=== PATIENT | female | born 1945 | race Caucasian/White ===

== ENCOUNTER 2018-03-16 15:45 | Outpatient (REF) | payer MEDICARE, SELFPAY ==
[2018-03-16 21:41] LABS: Cholesterol 314 mg/dL (50-200); HDL Cholesterol 58 mg/dL (40-60); LDL CHOLESTEROL 222 mg/dL (<100); TSH (W/Ref FT4) 5.14 uIU/mL (0.358-3.74); Triglyceride 186 mg/dL (30-150)
[2018-03-16 22:16] LABS: FREE T4 0.81 ng/dL (0.76-1.46)
== END 2018-03-16 16:05 ==
LOC: NCHCN 15:45
PROVIDERS: PCP Family Medicine; Visit Provider Family Medicine
DX: I48.91 Unspecified atrial fibrillation (principal); E78.5 Hyperlipidemia, unspecified; E03.9 Hypothyroidism, unspecified
CPT/HCPCS: 80061; 83721; 84439; 84443

== ENCOUNTER 2018-11-30 08:29 | Outpatient (REF) | payer OTHER, MEDICAID, SELFPAY ==
[2018-11-30 22:17] LABS: Abs Immature Grans 0.02 k/cumm (0.0-0.09); Absolute Basophil Count 0.04 k/cumm (0.0-0.2); Absolute Lymphocyte Count 2.01 k/cumm (1.2-3.4); Absolute Monocyte Count 0.64 k/cumm (0.11-0.7); Absolute Neutrophil Count 3.95 k/cumm (1.2-6.7); Basophils % 0.6; Eosinophils % 5.7; HCT 45.4 % (36.0-46.0); HGB 14.6 g/dL (12.0-15.5); Immature Grans % 0.3; Lymphocytes % 28.5; Mean Corp. HGB Concentration 32.2 g/dL (32.0-36.0); Mean Corpuscular Hemoglobin 31.3 pg (27.0-33.0); Mean Corpuscular Volume 97.4 fL (80-95); Mean Platelet Volume 12.4 fL (8.0-11.0); Monocytes % 9.1; Neutrophils % 55.8; Platelet Count 225 x1000/uL (130-400); RBC 4.66 m/cumm (4.00-5.20); RBC Distribution Width 14.1 % (11.7-14.6); White Blood Cell Count 7.06 k/cumm (4.4-10.8)
[2018-11-30 22:51] LABS: Anion Gap 12.6 mmol/L (3-11); BUN 18 mg/dL (7-18); CO2 23.4 mmol/L (21.0-32.0); CREATININE 1.02 mg/dL (0.55-1.02); Calcium 8.8 mg/dL (8.5-10.1); Chloride 107 mmol/L (98-107); Estimated GFR 53.27 (mL/min/1.73m2); Glucose 97 mg/dL (70-100); Sodium 143 mmol/L (136-145); TSH 4.97 uIU/mL (0.358-3.74)
[2018-12-02 09:18] LABS: Calculated LDL 198; Cholesterol 290 mg/dL (50-200); HDL Cholesterol 57 mg/dL (40-60); Triglyceride 177 mg/dL (30-150)
== END 2018-11-30 08:49 ==
LOC: LBN 08:29
PROVIDERS: PCP Family Medicine; Visit Provider Family Medicine
DX: I10 Essential (primary) hypertension (principal); E03.9 Hypothyroidism, unspecified; E78.5 Hyperlipidemia, unspecified; I48.91 Unspecified atrial fibrillation; Z79.01 Long term (current) use of anticoagulants; M79.652 Pain in left thigh
CPT/HCPCS: 80048; 80061; 83721; 82043; 82570; 84443; 85025

== ENCOUNTER 2019-01-08 09:40 | Outpatient (REF) | payer OTHER, MEDICAID, SELFPAY ==
[2019-01-08 21:41] LABS: ALT 22 U/L (12-78); Calculated LDL 125 mg/dL; Cholesterol 214 mg/dL (50-200); HDL Cholesterol 57 mg/dL (40-60); TSH 5.71 uIU/mL (0.36-3.74); Triglyceride 164 mg/dL (30-150)
[2019-01-08 22:19] LABS: COMMENT (LAB VIEW ONLY) 69.91 mg/dL
== END 2019-01-08 10:00 ==
LOC: NCHCN 09:40
PROVIDERS: PCP Family Medicine; Visit Provider Family Medicine
DX: I48.91 Unspecified atrial fibrillation (principal); I10 Essential (primary) hypertension; E03.9 Hypothyroidism, unspecified; E78.5 Hyperlipidemia, unspecified; M79.652 Pain in left thigh
CPT/HCPCS: 80061; 83721; 82043; 82570; 84443; 84460

== ENCOUNTER 2019-04-07 07:46 | Outpatient (REF) | payer OTHER, SELFPAY ==
[2019-04-07 21:42] LABS: Abs Immature Grans 0.01 k/cumm (0.0-0.09); Absolute Basophil Count 0.04 k/cumm (0.0-0.2); Absolute Eosinophil Count 0.24 k/cumm (0.0-0.7); Absolute Lymphocyte Count 2.15 k/cumm (1.2-3.4); Absolute Monocyte Count 0.62 k/cumm (0.11-0.7); Absolute Neutrophil Count 4.93 k/cumm (1.2-6.7); Basophils % 0.5; HCT 44.6 % (36.0-46.0); HGB 14.3 g/dL (12.0-15.5); Immature Grans % 0.1; Lymphocytes % 26.9; Mean Corp. HGB Concentration 32.1 g/dL (32.0-36.0); Mean Corpuscular Hemoglobin 31.2 pg (27.0-33.0); Mean Corpuscular Volume 97.4 fL (80-95); Mean Platelet Volume 11.5 fL (8.0-11.0); Monocytes % 7.8; Neutrophils % 61.7; Platelet Count 268 x1000/uL (130-400); RBC 4.58 m/cumm (4.00-5.20); RBC Distribution Width 13.9 % (11.7-14.6); White Blood Cell Count 7.99 k/cumm (4.4-10.8)
[2019-04-07 22:04] LABS: Anion Gap 10.2 mmol/L (3-11); BUN 17 mg/dL (7-18); CO2 26.8 mmol/L (21.0-32.0); CREATININE 1.04 mg/dL (0.55-1.02); Calcium 8.9 mg/dL (8.5-10.1); Calculated LDL 113 mg/dL; Chloride 105 mmol/L (98-107); Cholesterol 209 mg/dL (50-200); Estimated GFR 52.09 (mL/min/1.73m2); Glucose 112 mg/dL (70-100); HDL Cholesterol 59 mg/dL (40-60); Potassium 4.3 mmol/L (3.5-5.1); Sodium 142 mmol/L (136-145); TSH (W/Ref FT4) 9.46 uIU/mL (0.36-3.74); Triglyceride 187 mg/dL (30-150)
== END 2019-04-07 08:06 ==
LOC: NCHCN 07:46
PROVIDERS: PCP Family Medicine; Visit Provider Family Medicine
DX: E78.5 Hyperlipidemia, unspecified (principal); R94.6 Abnormal results of thyroid function studies; I10 Essential (primary) hypertension; E66.9 Obesity, unspecified; Z79.01 Long term (current) use of anticoagulants; I48.91 Unspecified atrial fibrillation
CPT/HCPCS: 80048; 80061; 84439; 84443; 85025

== ENCOUNTER 2019-05-24 07:58 | Outpatient (REF) | payer OTHER, MEDICAID, SELFPAY ==
[2019-05-24 21:24] LABS: Folate 10.7 ng/mL (8.6-20.0); Vitamin B12 270 pg/mL (193-986)
== END 2019-05-24 08:18 ==
LOC: NCHCN 07:58
PROVIDERS: PCP Family Medicine; Visit Provider Family Medicine
DX: D75.89 Other specified diseases of blood and blood-forming organs (principal); E03.9 Hypothyroidism, unspecified; I48.91 Unspecified atrial fibrillation; E78.5 Hyperlipidemia, unspecified; Z79.01 Long term (current) use of anticoagulants; M54.32 Sciatica, left side; I10 Essential (primary) hypertension
CPT/HCPCS: 82607; 82746

== ENCOUNTER 2019-07-13 08:42 | Outpatient (REF) | payer OTHER, MEDICAID, SELFPAY ==
[2019-07-13 22:10] LABS: Hemoglobin A1C 5.9 % (3.8-5.6)
[2019-07-13 22:12] LABS: TSH 6.76 uIU/mL (0.36-3.74)
== END 2019-07-13 09:02 ==
LOC: NCHCN 08:42
PROVIDERS: PCP Family Medicine; Visit Provider Nurse Practitioner Family
DX: R94.6 Abnormal results of thyroid function studies (principal); E78.5 Hyperlipidemia, unspecified
CPT/HCPCS: 83036; 84443

== ENCOUNTER 2019-10-20 20:11 | Outpatient (REF) | payer OTHER, MEDICAID, SELFPAY ==
[2019-10-20 21:01] LABS: Anion Gap 9.7 mmol/L (3-11); BUN 15 mg/dL (7-18); CO2 25.3 mmol/L (21.0-32.0); CREATININE 1.13 mg/dL (0.55-1.02); Calcium 9.1 mg/dL (8.5-10.1); Chloride 103 mmol/L (98-107); Estimated GFR 47.33 (mL/min/1.73m2); Glucose 101 mg/dL (74-106); Potassium 4.2 mmol/L (3.5-5.1); Sodium 138 mmol/L (136-145)
[2019-10-20 21:17] LABS: Hemoglobin A1C 5.7 % (3.8-5.6)
== END 2019-10-20 20:31 ==
LOC: NCHCN 20:11
PROVIDERS: PCP Family Medicine; Visit Provider Nurse Practitioner Family
DX: R73.03 Prediabetes (principal); I10 Essential (primary) hypertension; E03.9 Hypothyroidism, unspecified
CPT/HCPCS: 80048; 83036; 84443

== ENCOUNTER 2020-02-25 12:44 | Outpatient (REF) | payer OTHER, MEDICAID, SELFPAY ==
[2020-02-25 22:47] LABS: Calculated LDL 208 mg/dL (<100); Cholesterol 301 mg/dL (<200); HDL Cholesterol 53 mg/dL (40-60); TSH 5.13 uIU/mL (0.36-3.74); Triglyceride 202 mg/dL (<150)
[2020-02-25 22:57] LABS: Hemoglobin A1C 5.6 % (<5.7)
== END 2020-02-25 13:04 ==
LOC: NCHCN 12:44
PROVIDERS: PCP Family Medicine; Visit Provider Nurse Practitioner Family
DX: R73.03 Prediabetes (principal); R94.6 Abnormal results of thyroid function studies
CPT/HCPCS: 80061; 83036; 84443

== ENCOUNTER 2020-04-11 16:11 | Outpatient (REF) | payer OTHER, SELFPAY ==
[2020-04-11 21:07] LABS: TSH (W/Ref FT4) 6.16 uIU/mL (0.36-3.74)
[2020-04-11 21:26] LABS: FREE T4 0.98 ng/dL (0.76-1.46)
== END 2020-04-11 16:31 ==
LOC: NCHCN 16:11
PROVIDERS: PCP Family Medicine; Visit Provider Nurse Practitioner Family
DX: R94.6 Abnormal results of thyroid function studies (principal); I10 Essential (primary) hypertension
CPT/HCPCS: 84439; 84443

== ENCOUNTER 2020-05-24 19:25 | Outpatient (REF) | payer OTHER, SELFPAY ==
[2020-05-24 22:17] LABS: TSH 0.66 uIU/mL (0.36-3.74)
== END 2020-05-24 19:45 ==
LOC: NCHCN 19:25
PROVIDERS: PCP Family Medicine; Visit Provider Nurse Practitioner Family
DX: R94.6 Abnormal results of thyroid function studies (principal)
CPT/HCPCS: 84443

== ENCOUNTER 2020-06-30 17:33 | Outpatient (REF) | payer OTHER, SELFPAY ==
[2020-06-30 20:47] LABS: TSH 0.97 uIU/mL (0.36-3.74)
== END 2020-06-30 17:53 ==
LOC: NCHCN 17:33
PROVIDERS: PCP Family Medicine; Visit Provider Nurse Practitioner Family
DX: E03.9 Hypothyroidism, unspecified (principal)
CPT/HCPCS: 84443

== ENCOUNTER 2020-12-27 14:11 | Outpatient (REF) | payer OTHER, MEDICAID, SELFPAY ==
--- NOTE | 2020-12-27 13:40 | SKI_PTH ---
PATIENT: Anjelica Noonan LOC: [facility]#:[id number] AGE/SX: 75/F ROOM: RE12/27/[address]: Mali Banda : 1945 BED: DIS: 12/27/2020 SPEC #: [id number] RECD: 12/28/20 12:19 STATUS: [place] REQ #: [id number] MAIRLEE: 12/27/20 13:[address]: Mali Banda DEPT: Surgical Specimen RECD BY: Dayna Felix ENTERED: 12/28/20 12:20 SP TYPE: ROMARIO LIVINGSTON DR: Hakeem Zavala Tissues: 1 - SKIN BIOPSY(SHAVE/PUNCH) Procedures: SPECIAL STAIN 2 SKIN LEVEL 4 Comments: [id number]
[2020-12-27 21:52] LABS: Anion Gap 10.1 mmol/L (3-11); BUN 13 mg/dL (7-18); CO2 25.9 mmol/L (21.0-32.0); Calcium 9.6 mg/dL (8.5-10.1); Chloride 106 mmol/L (98-107); Glucose 100 mg/dL (74-106); Potassium 4.4 mmol/L (3.5-5.1); Sodium 142 mmol/L (136-145)
[2020-12-27 22:03] LABS: PROTEIN 21.1 mg/dL
[2020-12-27 22:06] LABS: Prot/Crea Ur Ratio 0.07
[2020-12-27 22:07] LABS: COMMENT (LAB VIEW ONLY) 277.24 mg/dL
== END 2020-12-27 14:12 | disposition home or self-care (01) ==
LOC: NCHCN 14:11
PROVIDERS: PCP Family Medicine; Visit Provider Nurse Practitioner Family
DX: R73.03 Prediabetes (principal); I10 Essential (primary) hypertension; L28.0 Lichen simplex chronicus
CPT/HCPCS: 80048; 82043; 82565; 82570; 84156; 88305; 88313

== ENCOUNTER 2021-07-24 18:29 | Outpatient (REF) | payer MEDICARE, MEDICAID, SELFPAY ==
[2021-07-24 21:32] LABS: Anion Gap 9.9 mmol/L (3-11); BUN 16 mg/dL (7-18); CO2 25.1 mmol/L (21.0-32.0); Calcium 9.1 mg/dL (8.5-10.1); Calculated LDL 207 mg/dL (<100); Chloride 106 mmol/L (98-107); Cholesterol 304 mg/dL (<200); Glucose 92 mg/dL (74-106); HDL Cholesterol 59 mg/dL (40-60); Potassium 4.3 mmol/L (3.5-5.1); Sodium 141 mmol/L (136-145); TSH 5.37 uIU/mL (0.36-3.74); Triglyceride 190 mg/dL (<150)
== END 2021-07-24 18:30 | disposition home or self-care (01) ==
LOC: NCHCN 18:29
PROVIDERS: PCP Family Medicine; Visit Provider Nurse Practitioner Family
DX: E03.9 Hypothyroidism, unspecified (principal); I10 Essential (primary) hypertension; E78.5 Hyperlipidemia, unspecified; E66.8 Other obesity; R94.6 Abnormal results of thyroid function studies
CPT/HCPCS: 80048; 80061; 84443

== ENCOUNTER 2021-09-11 15:13 | Outpatient (REF) | payer MEDICARE, MEDICAID, SELFPAY ==
[2021-09-11 17:30] LABS: TSH 1.26 uIU/mL (0.36-3.74)
== END 2021-09-11 15:14 | disposition home or self-care (01) ==
LOC: NCHCN 15:13
PROVIDERS: PCP Family Medicine; Visit Provider Nurse Practitioner Family
DX: E03.9 Hypothyroidism, unspecified (principal)
CPT/HCPCS: 84443

== ENCOUNTER 2022-01-29 16:39 | Outpatient (REF) | payer MEDICARE, MEDICAID, SELFPAY ==
[2022-01-29 21:00] LABS: HCT 42.8 % (36.0-46.0); HGB 13.9 g/dL (11.2-15.7); MCHC 32.5 % (32.0-36.0); MCV 98 fL (80-95); MPV 11.8 fL (8.0-11.0); Platelet Count 207 10^3/uL (130-400); RBC 4.35 10^6/uL (3.93-5.22); RDW 13.5 % (11.7-14.6); RDW-SD 49.1 fL; WBC 8.17 10^3/uL (4.4-10.8)
[2022-01-29 21:49] LABS: Anion Gap 9.4 mmol/L (3-11); BUN 21 mg/dL (7-18); CO2 24.6 mmol/L (21.0-32.0); Calcium 9.2 mg/dL (8.5-10.1); Calculated LDL 178 mg/dL (<100); Chloride 108 mmol/L (98-107); Cholesterol 284 mg/dL (<200); Estimated GFR 54.05 (mL/min/1.73m2); Folate 11.1 ng/mL (8.6-20.0); Glucose 104 mg/dL (74-106); HDL Cholesterol 49 mg/dL (40-60); Potassium 4.4 mmol/L (3.5-5.1); Sodium 142 mmol/L (136-145); Triglyceride 286 mg/dL (<150); Vitamin B12 429 pg/mL (193-986)
[2022-01-29 21:51] LABS: Hemoglobin A1C 5.9 % (<5.7)
== END 2022-01-29 16:40 | disposition home or self-care (01) ==
LOC: NCHCN 16:39
PROVIDERS: PCP Family Medicine; Visit Provider Nurse Practitioner Family
DX: E66.9 Obesity, unspecified (principal); D75.89 Other specified diseases of blood and blood-forming organs
CPT/HCPCS: 80048; 80061; 85027; 82607; 82746; 83036

== ENCOUNTER 2023-01-03 22:21 | Outpatient (REF) | payer MEDICARE, MEDICAID, SELFPAY ==
[2023-01-03 17:32] LABS: HCT 43.3 % (36.0-46.0); HGB 14.2 g/dL (11.2-15.7); MCHC 32.8 % (32.0-36.0); MCV 98 fL (80-95); MPV 12.4 fL (8.0-11.0); Platelet Count 165 10^3/uL (130-400); RBC 4.44 10^6/uL (3.93-5.22); RDW 13.6 % (11.7-14.6); RDW-SD 49.4 fL; WBC 8.13 10^3/uL (4.4-10.8)
[2023-01-03 17:48] LABS: Hemoglobin A1C 5.6 % (<5.7)
[2023-01-03 18:24] LABS: ALT 16 U/L (14-59); AST 23 U/L (15-37); Albumin 3.6 g/dL (3.4-5.0); Alkaline Phosphatase 77 U/L (46-116); Anion Gap 11.3 mmol/L (3-11); BUN 23 mg/dL (7-18); Bilirubin, Total 0.5 mg/dL (0.2-1.0); CO2 22.7 mmol/L (21.0-32.0); Calcium 9.3 mg/dL (8.5-10.1); Calculated LDL 199 mg/dL (<100); Chloride 105 mmol/L (98-107); Cholesterol 279 mg/dL (<200); Estimated GFR 58.39 (mL/min/1.73m2); Glucose 99 mg/dL (74-106); HDL Cholesterol 58 mg/dL (40-60); Potassium 4.2 mmol/L (3.5-5.1); Sodium 139 mmol/L (136-145); TSH (W/Ref FT4) 5.34 uIU/mL (0.36-3.74); Total Protein 7.6 g/dL (6.4-8.2); Triglyceride 113 mg/dL (<150)
[2023-01-03 18:59] LABS: FREE T4 1.11 ng/dL (0.76-1.46)
== END 2023-01-03 22:22 | disposition home or self-care (01) ==
LOC: NCHCN 22:21
PROVIDERS: PCP Family Medicine; Visit Provider Nurse Practitioner Family
DX: I10 Essential (primary) hypertension (principal); R73.03 Prediabetes; E66.9 Obesity, unspecified; M54.6 Pain in thoracic spine
CPT/HCPCS: 80053; 80061; 85027; 83036; 84439; 84443

== ENCOUNTER 2023-12-16 15:41 | Outpatient (REF) | payer MEDICARE, SELFPAY ==
[2023-12-16 21:29] LABS: HCT 42.9 % (36.0-46.0); HGB 14.1 g/dL (11.2-15.7); MCH 32.3 pg (27.0-33.0); MCHC 32.9 % (32.0-36.0); MCV 98 fL (80-95); MPV 11.7 fL (8.0-11.0); Platelet Count 220 10^3/uL (130-400); RBC 4.37 10^6/uL (3.93-5.22); RDW 13.8 % (11.7-14.6); RDW-SD 50.5 fL; WBC 8.09 10^3/uL (4.4-10.8)
[2023-12-16 21:53] LABS: ALT 22 U/L (14-59); AST 20 U/L (15-37); Albumin 3.5 g/dL (3.4-5.0); Alkaline Phosphatase 78 U/L (46-116); BUN 16 mg/dL (7-18); Bilirubin, Total 0.55 mg/dL (0.2-1.0); CREATININE 1.1 mg/dL (0.55-1.02); Calcium 9.4 mg/dL (8.5-10.1); Chloride 109 mmol/L (98-107); Estimated GFR 51.75 (mL/min/1.73m2); Glucose 120 mg/dL (74-106); Sodium 144 mmol/L (136-145); TSH 1.07 uIU/Ml (0.36-3.74); Total Protein 7.4 g/dL (6.4-8.2)
[2023-12-16 22:09] LABS: Hemoglobin A1C 5.8 % (<5.7)
== END 2023-12-16 15:42 | disposition home or self-care (01) ==
LOC: NCHCN 15:41
PROVIDERS: PCP Family Medicine; Visit Provider Nurse Practitioner Family
DX: E78.5 Hyperlipidemia, unspecified (principal); Z51.81 Encounter for therapeutic drug level monitoring; I10 Essential (primary) hypertension; E03.9 Hypothyroidism, unspecified
CPT/HCPCS: 80053; 85027; 83036; 84443